=== PATIENT | male | born 1950 | race Caucasian/White ===

== ENCOUNTER → 2016-03-12 | Outpatient (CLI) | payer MEDICARE ==
[~2016-03-12] MED LIST: /CLON1TA; /CLON1TA GT; /METO5TA PO; ACET65TA; AMLO5TAB2 PO; ASPI81TA63; ASPI81TA85 PO; ATAC16TA PO; ATAC32TA; ATEN25TA; ATEN25TA PO; ATOR1TAB21 PO; CAND16TA; CAND16TA2 PO; CARA1TAB2 PO; CATA0.2T; CIPR500T89 PO; CLON0.1T PO; CLON0.2T PO; CLOP75TA2 PO; COLA100C2; FENOGLIDE; FLAG500T PO; GEMF600T PO; HYDR12.56 PO; HYDR25TA6; HYDR50TAB PO; JANU100T PO; LIPI20TA; LIPI20TA PO; LIPO150C3 PO; METO10TA2; MYLASS PO; NORVAS PO; OMEP20CA3 PO; PLAV75TA2; PLAV75TA38 PO; PRIL20CA; VICO5TAB; ZOFR20TA PO; ZOFR4SOL PO
--- NOTE | 2016-03-12 14:15 | REP ---
Abdominal aortic sonography: History: Family history of abdominal aortic aneurysm. Hypercholesterolemia. Tobacco use. Findings: Incidental note is made of an 8 mm gallstone in the gallbladder. Common bile duct is normal measuring 0.3 cm. The abdominal aorta measures 1.9 x 2.1 cm in AP by transverse dimension at the diaphragmatic hiatus. At mid aorta, the corresponding dimensions are 1.9 x 1.9 cm. There is mild atherosclerotic change throughout the abdominal aorta. The distal aorta measures 1.6 x 2.1 cm. No aneurysm is seen. Right and left common iliac arteries are normal in caliber measuring 1.0 and 0.7 cm in AP dimension respectively. Impression: No evidence of abdominal aortic aneurysm. Gallstones seen. Signed by Mauri Franklin MD 03/12/2016 03:33 P
== END ==
LOC: M RAD 10:52
PROVIDERS: ATTEND Nurse Practitioner Family
DX: I10 Essential (primary) hypertension (principal); E78.00 Pure hypercholesterolemia, unspecified; K80.20 Calculus of gallbladder without cholecystitis without obstruction; Z82.49 Family history of ischemic heart disease and other diseases of the circulatory system

== ENCOUNTER → 2016-10-09 | Outpatient (REF) | payer BC ==
[~2016-10-09] MED LIST changes: +CIPR-249 PO; -CIPR500T89 PO; +PLAV1TAB2 PO; -PLAV75TA38 PO
== END ==
LOC: M LAB REF 17:30
PROVIDERS: ATTEND Surgery
DX: L72.11 Pilar cyst (principal)

== ENCOUNTER → 2016-11-14 | Outpatient (CLI) | payer MEDICARE ==
--- NOTE | 2016-11-14 10:50 | REP ---
Thyroid sonography: History: Thyroid nodule. Comparison study: January 30, 2016. This prior study showed a stable 4.6 cm solid nodule in the left lobe. This was biopsied with FNA technique under ultrasound guidance in June 2015. Findings: Thyroid isthmus today measures 0.2 cm in thickness. Right lobe dimensions are 3.2 x 1.5 x 1.4 cm. The left thyroid lobe measures 5.7 x 3.5 x 3.3 cm. A large heterogeneous nodule is again noted somewhat increased in size measuring 5.4 x 3.2 x 3.2 cm in the left lobe. There is a cystic component in the nodule which measures 1.5 cm in greatest diameter. No nodule or cyst is seen in the right lobe. Impression: Previously noted large predominantly solid nodule in the left lobe is again seen. This appears to have increased in size slightly since the prior study Signed by Mauri Franklin MD 11/14/2016 12:11 P
== END ==
LOC: M RAD 09:41
PROVIDERS: ATTEND Surgery
DX: E04.1 Nontoxic single thyroid nodule (principal)

== ENCOUNTER → 2017-03-18 | Outpatient (CLI) | payer MEDICARE | LOC: M RAD 09:54 | DX: Z82.49 Family history of ischemic heart disease and other diseases of the circulatory system (principal) | CPT/HCPCS: 76775 ==

== ENCOUNTER → 2017-09-15 | Outpatient (REF) | payer MEDICARE | LOC: M SFHCLERA 17:31 | DX: J02.9 Acute pharyngitis, unspecified (principal) ==

== ENCOUNTER → 2017-09-17 | Outpatient (CLI) | payer MEDICARE ==
[2017-09-17 18:36] LABS: HEMATOCRIT 45.2 % (42.0-52.0); HEMOGLOBIN 15.2 g/dl (13.5-17.5); MEAN CORPUSCULAR HEMOGLOBIN 29.6 pg (27.0-33.0); MEAN CORPUSCULAR HGB CONC 33.6 g/dl (32.0-36.5); MEAN CORPUSCULAR VOLUME 88.1 fl (80.0-96.0); PLATELET COUNT, AUTOMATED 256 10^3/uL (150-450); RED BLOOD COUNT 5.13 10^6/uL (4.30-6.10); RED CELL DISTRIBUTION WIDTH 12.9 % (11.5-14.5); WHITE BLOOD COUNT 11.8 10^3/uL (4.0-10.0)
[2017-09-17 18:39] LABS: ANION GAP 7 MEQ/L (8-16); BLOOD UREA NITROGEN 27 MG/DL (7-18); CALCIUM LEVEL 9.1 MG/DL (8.8-10.2); CARBON DIOXIDE LEVEL 26 MEQ/L (21-32); CHLORIDE LEVEL 109 MEQ/L (98-107); CREATININE FOR GFR 1.58 MG/DL (0.70-1.30); GLOMERULAR FILTRATION RATE 46.7 (>49); GLUCOSE, FASTING 198 MG/DL (70-100); SODIUM LEVEL 142 MEQ/L (136-145)
== END ==
LOC: M LAB 17:33
DX: Z01.812 Encounter for preprocedural laboratory examination (principal); E11.9 Type 2 diabetes mellitus without complications; I10 Essential (primary) hypertension; H26.9 Unspecified cataract
CPT/HCPCS: 80048

== ENCOUNTER 2018-09-30 15:10 | Emergency (ER) | payer MEDICARE ==
[~2018-09-30] VITALS: Ht 180.3 cm; Wt 102.3 kg
[~2018-09-30 15:10] MED LIST changes: -/CLON1TA; -/CLON1TA GT; -/METO5TA PO; -AMLO5TAB2 PO; +AMLO5TAB6 PO; +CLON-412; +CLON-412 GT; -GEMF600T PO; +GEMF600T5 PO; +METO1TAB88 PO; +OMEP1CAP73 PO; -ZOFR20TA PO; +ZOFR4TAB16 PO
[2018-09-30] MEDS ORDERED: GLIM1TAB4 PO (15:17)
[2018-09-30] MEDS ORDERED: NS 1,000 ML IV ONE ×2 (15:30→18:00)
[2018-09-30] MEDS ORDERED: ONDANSETRON 4MG/2ML VIAL (J2405) IV ONE (15:30)
[2018-09-30 15:52] LABS: BASO % 0.4 % (0.0-1.0); EOS % 0.3 % (0.0-3.0); HEMATOCRIT 48.4 % (42.0-52.0); HEMOGLOBIN 16.3 g/dl (13.5-17.5); LYMPH # 0.9 10^3/uL (1.5-4.5); LYMPH % 13.1 % (24.0-44.0); MEAN CORPUSCULAR HEMOGLOBIN 29.8 pg (27.0-33.0); MEAN CORPUSCULAR HGB CONC 33.7 g/dl (32.0-36.5); MEAN CORPUSCULAR VOLUME 88.5 fl (80.0-96.0); MONO # 0.3 10^3/uL (0.0-0.8); MONO % 3.9 % (0.0-5.0); NEUTROPHILS # 5.5 10^3/uL (1.8-7.7); NEUTROPHILS % 81.9 % (36.0-66.0); PLATELET COUNT, AUTOMATED 226 10^3/uL (150-450); RED BLOOD COUNT 5.47 10^6/uL (4.30-6.10); WHITE BLOOD COUNT 6.7 10^3/uL (4.0-10.0)
[2018-09-30 16:20] LABS: ALBUMIN 4.1 GM/DL (3.2-5.2); ALT/SGPT 60 U/L (12-78); BILIRUBIN,DIRECT 0.2 MG/DL (0.0-0.2); BILIRUBIN,TOTAL 0.4 MG/DL (0.2-1.0); BLOOD UREA NITROGEN 19 MG/DL (7-18); CALCIUM LEVEL 9.4 MG/DL (8.8-10.2); CARBON DIOXIDE LEVEL 28 MEQ/L (21-32); CHLORIDE LEVEL 103 MEQ/L (98-107); CREATININE FOR GFR 1.28 MG/DL (0.70-1.30); GLOMERULAR FILTRATION RATE 59.3 (>49); GLUCOSE, FASTING 166 MG/DL (70-100); LIPASE 120 U/L (73-393); POTASSIUM SERUM 4.2 MEQ/L (3.5-5.1); SODIUM LEVEL 139 MEQ/L (136-145)
[2018-09-30] MEDS ORDERED: ISOVUE-370 76% 100ML VIAL (Q9967) As Ordered ONE (17:09)
[2018-09-30] MEDS ORDERED: METOCLOPRAMIDE INJ 10MG/2ML VIAL (J2765) IV ONE (17:15)
[2018-09-30 17:30] LABS: CK-MB VALUE MASS 3.3 NG/ML (<3.6); CPK CREATINE PHOSPHOKINASE 198 U/L (39-308); MB/CK RELATIVE INDEX 1.67 (< OR =4); TROPONIN I < 0.02 NG/ML (< 0.10)
[2018-09-30] MEDS ORDERED: PROMETHAZINE INJ 25 MG/ML VIAL (J2550) IV ONE (17:30)
--- NOTE | 2018-09-30 18:18 | REPVR ---
EXAM: CT Abdomen and Pelvis With Contrast EXAM DATE/TIME: 09/30/2018 5:11 PM CLINICAL HISTORY: 68 years old, male; Abdominal pain; Generalized; Additional info: Diffuse abdominal pain TECHNIQUE: Imaging protocol: Axial computed tomography images of the abdomen and pelvis with intravenous contrast. Coronal and sagittal reformatted images were created and reviewed. Radiation optimization: All CT scans at this facility use at least one of these dose optimization techniques: automated exposure control; mA and/or kV adjustment per patient size (includes targeted exams where dose is matched to clinical indication); or iterative reconstruction. Contrast material: ISOVUE 370;Contrast volume: 100 ml;Contrast route: IV; COMPARISON: CT ABD PELVIS WITH CONTRAST 08/04/2014 10:32 PM FINDINGS: Lungs: Linear stranding and groundglass at the lung bases, likely due to atelectasis and/or scarring. Bilateral lower lobe calcified granulomata. Mediastinum: Small hiatal hernia. Liver: Mild hepatomegaly. Diffuse hepatic steatosis. Gallbladder and bile ducts: Cholelithiasis. Pancreas: Unremarkable. Spleen: Approximately 3.8 x 3.7 cm hypervascular lesion in the anterior aspect of the spleen, similar to prior and likely a hemangioma. Adrenals: Unremarkable. Kidneys and ureters: Mild nonspecific bilateral perinephric stranding. No radiodense calculi. No hydronephrosis. Stomach and bowel: Scattered colonic diverticula without evidence of diverticulitis. No obstruction. No bowel wall thickening. No pneumatosis. Appendix: Appendix not identified with certainty but no right lower quadrant inflammatory change to suggest acute appendicitis. Intraperitoneal space: Subtle, hazy infiltration of the mesenteric fat. Vasculature: Mild to moderate atherosclerotic disease. No aneurysm. Lymph nodes: Multiple small mesenteric lymph nodes, nonspecific in appearance. No pathologically enlarged lymph nodes. Bladder: Unremarkable. Reproductive: Unremarkable. Bones/joints: No acute osseous abnormality. Osteopenia. Mild degenerative changes. Soft tissues: Unremarkable. IMPRESSION: 1. Hazy infiltration of the mesenteric fat with multiple small mesenteric lymph nodes, suggestive of kan mesentery, a nonspecific finding which can be seen with mesenteric panniculitis. 2. Additional findings, as above. Electronically signed by: Sharath Trimble On 09/30/2018 18:18:11 PM
[2018-09-30 18:40] VITALS: BP 165/80
[2018-09-30] MEDS ORDERED: methylPREDNISolone INJ 125 MG/2 ML VIAL (J2930) IV ONE (18:45)
[2018-09-30] MEDS ORDERED: ZOFR8TAB24 PO (19:14)
[2018-09-30] MEDS ORDERED: PRED20TA PO (19:14)
[2018-09-30] MEDS ORDERED: ONDANSETRON 4 MG TAB (S0181) PO ONE (19:30)
--- NOTE | 2018-09-30 20:06 | ECGEPIP ---
[facility] - ED Test Date: 2018-09-30 Pat Name: PABLITO WHITE Department: Room: - Gender: Male [employer] Professor: portia : 1950 Requested By: ZBIGNIEW Artis PA-C Order Number: [id number] Reading MD: Suleiman Mares Measurements Intervals Clark Rate: 74 P: 6 TX: 191 QRS: 26 QRSD: 106 T: 31 QT: 422 QTc: 469 Interpretive Statements SINUS RHYTHM WITH OCCASIONAL VENTRICULAR PREMATURE COMPLEXES SIMILAR TO 08/05/14 Electronically Signed on 09-30-2018 20:06:29 EDT by Suleiman Mares
[2018-10-11] MEDS ORDERED: ONDA8TAB10 PO (04:47)
== END 2018-09-30 19:29 | disposition home or self-care (01) ==
LOC: M ED 15:10
DX: K65.4 Sclerosing mesenteritis (principal); E11.9 Type 2 diabetes mellitus without complications; I10 Essential (primary) hypertension; E78.5 Hyperlipidemia, unspecified; K27.9 Peptic ulcer, site unspecified, unspecified as acute or chronic, without hemorrhage or perforation; I25.2 Old myocardial infarction; Z79.899 Other long term (current) drug therapy; Z79.82 Long term (current) use of aspirin; Z79.02 Long term (current) use of antithrombotics/antiplatelets; Z88.5 Allergy status to narcotic agent; Z87.891 Personal history of nicotine dependence
CPT/HCPCS: 74177; 80048; 80076; 81001; 82550; 82553; 83605; 83690; 84484; 85025; 93005; 96361; 96374; 96375; 99284; J2405; J2765; J2930; Q9967

== ENCOUNTER 2018-10-10 20:39 | Observation (INO) | payer MEDICARE ==
[~2018-10-10] VITALS: Ht 180.3 cm; Wt 93.0 kg
[~2018-10-10 20:39] MED LIST changes: +GLIM1TAB PO; -OMEP1CAP73 PO; +OMEP20CA4 PO; +PRED20TA PO; +ZOFR8TAB24 PO
[2018-10-10] MEDS: ACETAMINOPHEN 500 MG TAB PO SCH (21:00)
[2018-10-10] MEDS: HumaLOG INSULIN (NovoLOG) PER UNIT SC SCH (21:00)
--- NOTE | 2018-10-10 21:26 | HPEPDOC ---
[facility] Medical History & Physical Date of Admission Oct 10, 2018 Date of Service: Oct 10, 2018 Primary Care Physician: Chasity Maldonado N.P. Attending Physician: PANDA LOYD MD History and Physical Time of service 10:50 PM CHIEF COMPLAINT: Transfer from outside hospital HISTORY OF PRESENT ILLNESS: This is a 68-year-old male who was transferred from [facility] for a higher level of care. He came to [facility] on October 03 with nausea, and intractable vomiting. 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 Shortly there after he presented to [facility] where he was admitted for management of near syncope along with nausea and vomiting. Based on their notes a Carotid duplex, CT of the head, and right upper quadrant ultrasound were done. The CDs have been sent here with him. Currently the patient reports still feeling nauseous and had vomited on the way to the hospital. Since arrival, he has not vomited. He denies having bloody emesis. REVIEW OF SYSTEMS: 12 point review of systems negative except as listed in HPI PAST MEDICAL /SURGICAL HISTORY: 1. Chronic hypertension. 2. Xdb-moryhio-wvhnjtzyh 3 Chronic CAD that is post CABG 4. Gallstones. 5. Fatty liver. 6. GERD/ hiatial hernia / peptic ulcer disease 7. Hypothyroidism status post thyroidectomy for thyroid cancer 8 History of SBO twice 9. Status post appendectomy. SOCIAL HISTORY: Former smoker. Denies alcohol use FAMILY HISTORY: Coronary artery disease ALLERGIES: Please see below. HOME MEDICATIONS: Please see below. PHYSICAL EXAMINATION: VITAL SIGNS: See below GENERAL APPEARANCE: Well-nourished, well-developed, not in apparent distress HEENT: normocephalic, atraumatic, mucous members moist and pink CARDIOVASCULAR: Regular rate and rhythm. No murmurs, rubs or gallops LUNGS: Clear to auscultation bilaterally on room air ABDOMEN: Positive bowel sounds. Abdomen firm but not tender on palpation MUSCULOSKELETAL: Range of motion intact 4 extremities NEUROLOGICAL: Cranial nerves II-12 grossly intact. Speech not dysarthric PSYCHIATRIC: Alert and oriented to person, place and time, able to understand and follow commands LABORATORY DATA: See below. IMAGING: Pending upload of images to [email or web address] system MICROBIOLOGY: Please see below. ASSESSMENT: Mr. Alcazar is a 68-year-old male with a past medical history of coronary artery disease, non-insulin dependent diabetes, chronic hypertension, fatty liver, GERD, hiatial hernia, peptic ulcer disease, and history of small bowel obstruction was transferred from [facility] for higher level of care. . PLAN: 1. N/V Cause to be determined Suspect the patient may have diabetic gastroparesis He also has a history of gallstones, GERD/ hiatial hernia / peptic ulcer disease Plan: admit GMF / nothing by mouth/IV fluids/ daytime team may consider a GI or general surgery consult for EGD pending the results of agastric emptying study and revision of images done at [facility]/ YAZMIN Ann, Lonny 2. Ecx-altsryr-zstmoobam Plan: f/u accuchecks & A1C / hypoglycemia protocol / sliding scale / hold oral anti-glycemics 3. Chronic hypertension. Plan: Continue home meds 4 Chronic CAD/status post CABG Plan: Continue home meds 5.Hypothyroidism status post thyroidectomy for thyroid cancer. Plan: Continue home meds DVT prophylaxis SCDs Disposition pending clinical course Home Medications Scheduled Acetaminophen (Tylenol Extra Strength) 500 Mg Tablet, 1,000 MG PO QHS Amlodipine Besylate (Amlodipine Besylate) 5 Mg Tab, 5 MG PO BID Amoxicillin (Amoxicillin) 500 Mg Capsule, 500 MG PO TID PRESCRIBED 10/06/18 TID X7 DAYS Aspirin (Aspir 81) 81 Mg Tab, 81 MG PO DAILY Atenolol (Atenolol) 25 Mg Tab, 25 MG PO BID Atorvastatin Calcium (Lipitor) 20 Mg Tab, 20 MG PO QPM Candesartan Cilexetil (Candesartan Cilexetil) 32 Mg Tablet, 16 MG PO BID Clonidine HCl (Clonidine HCl) 0.2 Mg Tab, 0.2 MG PO BID Clopidogrel Bisulfate (Plavix) 75 Mg Tab, 75 MG PO DAILY Diphenhydramine HCl (Sleep-Aid) 25 Mg Capsule, 25 MG PO QHS Ergocalciferol (Vitamin D2) (Vitamin D2) 50,000 Unit Capsule, 50,000 UNIT PO QWEEK MONDAYS Fenofibrate,Micronized (Fenofibrate) 200 Mg Capsule, 200 MG PO DAILY Fluticasone Propionate (Flonase Allergy Relief) 9.9 Ml [place].susp, 1 SPRAY NARES DAILY Glimepiride (Glimepiride) 1 Mg Tablet, 1 MG PO DAILY Hydrochlorothiazide (Hydrochlorothiazide) 50 Mg Tab, 50 MG PO DAILY Levothyroxine Sodium (Synthroid) 175 Mcg Tablet, 175 MCG PO QAM Loratadine (Claritin) 10 Mg Tablet, 10 MG PO DAILY Melatonin (Melatonin) 10 Mg Capsule, 10 MG PO QHS Pantoprazole Sodium (Pantoprazole Sodium) 40 Mg Tablet.dr, 40 MG PO DAILY Scheduled PRN Nitroglycerin (Nitroglycerin) 0.4 Mg Tab.subl, 0.4 MG SL Q5MP PRN for CHEST PAIN 1st sign of attack; may repeat every 5 mins; if pain persists after 3 in 15 min, medical attention is recommended Ondansetron HCl (Ondansetron HCl) 8 Mg Tablet, 8 MG PO TID PRN for NAUSEA OR VOMITING Allergies Coded Allergies: morphine (Verified Allergy, Severe, heavy chest, 09/30/18) A-FIB/CHADSVASC A-FIB History Current/History of A-Fib/PAF?: No Current PO Anticoag Therapy: No PANDA LOYD MD Oct 10, 2018 21:26
[2018-10-10 21:30] VITALS: BP 117/93
[2018-10-10] MEDS ORDERED: METOCLOPRAMIDE INJ 10MG/2ML VIAL (J2765) IV PRN (21:30)
[2018-10-10] MEDS ORDERED: DEXTROSE 50% 50 ML SYRINGE IV PRN (21:45)
[2018-10-10] MEDS ORDERED: OLANZapine INTRAMUSCULAR 10 MG VIAL (S0166) IM PRN (21:45)
[2018-10-10] MEDS: NS 1,000 ML IV SCH (22:08)
[2018-10-10 22:09] LABS: HEMATOCRIT 50.5 % (42.0-52.0); HEMOGLOBIN 16.7 g/dl (13.5-17.5); MEAN CORPUSCULAR HEMOGLOBIN 29.5 pg (27.0-33.0); MEAN CORPUSCULAR HGB CONC 33.1 g/dl (32.0-36.5); MEAN CORPUSCULAR VOLUME 89.2 fl (80.0-96.0); PLATELET COUNT, AUTOMATED 227 10^3/uL (150-450); RED BLOOD COUNT 5.66 10^6/uL (4.30-6.10); WHITE BLOOD COUNT 9.6 10^3/uL (4.0-10.0)
[2018-10-10 22:24] LABS: INR 1.01
[2018-10-10] MEDS: ONDANSETRON 4MG/2ML VIAL (J2405) IV SCH (22:27)
[2018-10-10] MEDS: PANTOPRAZOLE 40MG INJ (PROTONIX) (C9113) IV SCH (22:27)
[2018-10-10 22:33] LABS: ALBUMIN 3.6 GM/DL (3.2-5.2); BILIRUBIN,TOTAL 0.4 MG/DL (0.2-1.0); CREATININE FOR GFR 1.32 MG/DL (0.70-1.30); GLOMERULAR FILTRATION RATE 57.3 (>49); POTASSIUM SERUM 3.9 MEQ/L (3.5-5.1); TOTAL PROTEIN 6.8 GM/DL (6.4-8.2)
[2018-10-11] MEDS: ONDANSETRON 4MG/2ML VIAL (J2405) IV SCH ×6 (02:11→21:41)
[2018-10-11] MEDS ORDERED: CVS10CAP7 PO (04:47)
[2018-10-11] MEDS ORDERED: FENO200C PO (04:47)
[2018-10-11] MEDS ORDERED: SYNT175T2 PO (04:47)
[2018-10-11] MEDS ORDERED: CAND32TA9 PO (04:47)
[2018-10-11] MEDS ORDERED: FLON1SPR NARES (04:47)
[2018-10-11] MEDS ORDERED: RA S25CA PO (04:47)
[2018-10-11] MEDS ORDERED: AMOX500C PO (04:47)
[2018-10-11] MEDS ORDERED: CLAR10TA7 PO (04:47)
[2018-10-11] MEDS ORDERED: VITA500045 PO (04:47)
[2018-10-11] MEDS ORDERED: PANT-23 PO (04:47)
[2018-10-11] MEDS ORDERED: ONDA8TAB7 PO (04:47)
[2018-10-11] MEDS ORDERED: NITR0.4S14 SL (04:47)
[2018-10-11] MEDS ORDERED: ACET-897 PO (04:47)
[2018-10-11 06:00] VITALS: BP 168/88
[2018-10-11 07:03] LABS: HEMATOCRIT 46.6 % (42.0-52.0); HEMOGLOBIN 15.7 g/dl (13.5-17.5); MEAN CORPUSCULAR HEMOGLOBIN 28.9 pg (27.0-33.0); MEAN CORPUSCULAR HGB CONC 33.7 g/dl (32.0-36.5); MEAN CORPUSCULAR VOLUME 85.8 fl (80.0-96.0); PLATELET COUNT, AUTOMATED 225 10^3/uL (150-450); RED BLOOD COUNT 5.43 10^6/uL (4.30-6.10); WHITE BLOOD COUNT 8.3 10^3/uL (4.0-10.0)
[2018-10-11 07:27] LABS: BLOOD UREA NITROGEN 17 MG/DL (7-18); CARBON DIOXIDE LEVEL 27 MEQ/L (21-32); CHLORIDE LEVEL 108 MEQ/L (98-107); CREATININE FOR GFR 1.24 MG/DL (0.70-1.30); GLOMERULAR FILTRATION RATE > 60.0 (>49); GLUCOSE, FASTING 110 MG/DL (70-100); MAGNESIUM LEVEL 2.1 MG/DL (1.8-2.4); POTASSIUM SERUM 3.4 MEQ/L (3.5-5.1); SODIUM LEVEL 141 MEQ/L (136-145)
[2018-10-11] MEDS: HumaLOG INSULIN (NovoLOG) PER UNIT SC SCH ×4 (07:30→21:00)
[2018-10-11] MEDS ORDERED: METOCLOPRAMIDE INJ 10MG/2ML VIAL (J2765) IV PRN (08:30)
[2018-10-11] MEDS ORDERED: POTASSIUM CHLORIDE 10 MEQ SR TABLET PO ONE (09:00)
[2018-10-11] MEDS: GLIMEPIRIDE 1 MG TABLET PO SCH (09:00)
[2018-10-11] MEDS: CANDESARTAN 16 MG TABLET PO SCH ×2 (10:09→21:33)
[2018-10-11] MEDS: ASPIRIN 81 MG ENTERIC TAB PO SCH (10:09)
[2018-10-11] MEDS: FLUTICASONE PROP 0.05% NASAL SPRAY 16 GM (FLONASE) NARES SCH (10:09)
[2018-10-11] MEDS: hydroCHLOROthiazide 25 MG TAB PO SCH (10:10)
[2018-10-11] MEDS: CLOPIDOGREL 75 MG TAB PO SCH (10:11)
[2018-10-11] MEDS: ATENOLOL 25 MG TAB PO SCH ×2 (10:11→21:34)
[2018-10-11] MEDS: amLODIPine 5 MG TAB PO SCH ×2 (10:11→21:33)
[2018-10-11] MEDS: cloNIDine 0.2 MG TAB PO SCH ×2 (10:11→21:37)
--- NOTE | 2018-10-11 11:57 | IPNPDOC ---
Subjective Date Seen The patient was seen on 10/11/18. Subjective Chief Complaint/HPI Patient's symptoms are improving but is still has some nausea. No abdominal pain General: Denies: ROS Unobtainable, Chills, Night Sweats, Fatigue, Malaise, Normal Appetite, Other Symptoms Constitutional: Denies: Chills, Fever, Malaise, Night Sweats, Weakness, Fatigue, Weight Loss, Lethargy, Other Eyes: Denies: Pain, Vision change, Conjunctivae inflammation, Eyelid inflammation, Redness, Other ENT: Denies: Head Aches, Ear Pain, Dysphagia, Sinus Congestion, Post Nasal Drip, Sore Throat, Epistaxis, Other Symptoms Skin: Denies: Rash, Lesions, Jaundice, Bruising, Itching, Dry, Breakdown, Nail Changes, Other Pulmonary: Denies: Dyspnea, Cough, Pleuritic Chest Pain, Other Symptoms Gastrointestinal: Reports: Nausea; Denies: Vomiting, Abdominal Pain, Diarrhea, Constipation, Melena, Hemato chezia, Other Symptoms Endocrine: Denies: Polydipsia, Polyphagia, Polyuria, Heat Intolerance, Cold Intolerance, Other Endocrine Sx Musculoskeletal: Denies: Neck Pain, Back Pain, Shoulder Pain, Arm Pain, Hand Pain, Leg Pain, Foot Pain, Joint Pain, Muscle Pain, Spasms, Other Symptoms Psych: Denies: Mood Normal, Anxiety, Depression, Memory Issues, Thoughts of Self Harm, Anger, Thoughts of Harming Other, Other Psych Objective Physical Examination General Exam: Positive: Alert Eye Exam: Positive: PERRLA, Conjunctiva & lids normal ENT Exam: Positive: Atraumatic, Mucous membr. moist/pink Neck Exam: Positive: Supple Chest Exam: Positive: Clear to auscultation, Normal air movement Heart Exam: Positive: Rate Normal, Normal S1, Normal S2 Abdomen Exam: Positive: Normal bowel sounds, Soft Extremity Exam: Positive: Normal pulses Skin Exam: Positive: Nl turgor and temperature Neuro Exam: Positive: Normal Gait, Normal Speech, Strength at 5/5 X4 ext, Sensation Intact Assessment /Plan Problems (1) Intractable vomiting with nausea Status: Acute Problem Text: This is a 68-year-old male who was transferred from [facility] for a higher level of care. He to [facility] on October 03 with nausea, and intractable vomiting. 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 Nevertheless, he continued to vomit at home. Really there after he presented to [facility] where he was admitted for management of near syncope along with nausea and vomiting. Based on their notes . Carotid duplex, CT of the head, and right upper quadrant ultrasound were done. The CDs have been sent with him. Currently the patient reports still feeling nauseous and vomited on the way to the hospital. Since arrival, he has not vomited. He denies having episodes of bloody emesis Patient seems to be responding to conservative management and has decreased vomiting but has still has some nausea , Most likely suggestive diabetic gastroparesis nature Will start Reglan 5 mg IV every 6 hours Repeat all labs in a.m. Clear liquid diet Close monitoring (2) Hypokalemia Status: Acute Problem Text: Corrected The level in a.m. Plan/VTE VTE Prophylaxis Ordered?: Yes VS, I&O, 24H, Fishbone Vital Signs/I&O Vital Signs Date Time Temp Pulse Resp B/P (MAP) Pulse Ox O2 Delivery O2 Flow Rate FiO2 10/11/18 10:11 168/88 10/11/18 10:11 75 10/11/18 06:00 98.1 18 97 I&O- Last 24 Hours up to 6 AM 10/11/18 06:00 Intake Total 360 ml Output Total 550 ml Balance -190 ml Laboratory Data 24H LABS Laboratory Tests 2 10/10/18 21:58: Bedside Glucose (Misc Panel) 111 10/10/18 22:02: Nucleated Red Blood Cells % (auto) 0.0, Prothrombin Time 13.0, Prothromb Time International Ratio 1.01, Anion Gap 5L, Glomerular Filtration Rate 57.3, Blood Urea Nitrogen 16, Creatinine 1.32H, Sodium Level 140, Potassium Level 3.9, Chloride Level 105, Carbon Dioxide Level 30, Calcium Level 9.0, Aspartate Amino Transf (AST/SGOT) 43H, Alanine Aminotransferase (ALT/SGPT) 70, Alkaline Phosphatase 55, Total Bilirubin 0.4, Total Protein 6.8, Albumin 3.6, Albumin/Globulin Ratio 1.13 10/11/18 06:49: Nucleated Red Blood Cells % (auto) 0.0, Anion Gap 6L, Glomerular Filtration Rate > 60.0, Blood Urea Nitrogen 17, Creatinine 1.24, Sodium Level 141, Potassium Level 3.4L, Chloride Level 108H, Carbon Dioxide Level 27, Calcium Level 9.0, Estimated Mean Plasma Glucose 154H, Hemoglobin A1c 7.0, Magnesium Level 2.1 10/11/18 11:35: Bedside Glucose (Misc Panel) 117H CBC/BMP Laboratory Tests 10/10/18 22:02 Red Blood Count 5.66, Mean Corpuscular Volume 89.2, Mean Corpuscular Hemoglobin 29.5, Mean Corpuscular Hemoglobin Concent 33.1, Red Cell Distribution Width 13.2, Calcium Level 9.0, Aspartate Amino Transf (AST/SGOT) 43 H, Alanine Aminotransferase (ALT/SGPT) 70, Alkaline Phosphatase 55, Total Bilirubin 0.4, Total Protein 6.8, Albumin 3.6 10/11/18 06:49 Red Blood Count 5.43, Mean Corpuscular Volume 85.8, Mean Corpuscular Hemoglobin 28.9, Mean Corpuscular Hemoglobin Concent 33.7, Red Cell Distribution Width 13.2, Calcium Level 9.0 MAGDALENO PÉREZ MD Oct 11, 2018 11:57
[2018-10-11 14:00] VITALS: BP 149/72
[2018-10-11] MEDS: NS 1,000 ML IV SCH (14:40)
[2018-10-11] MEDS: ATORVASTATIN 20 MG TAB PO SCH (18:22)
[2018-10-11] MEDS: ACETAMINOPHEN 500 MG TAB PO SCH ×2 (21:00→21:41)
[2018-10-11] MEDS: PANTOPRAZOLE 40MG INJ (PROTONIX) (C9113) IV SCH (21:40)
[2018-10-11 22:00] VITALS: BP 146/76
[2018-10-12] MEDS: ONDANSETRON 4MG/2ML VIAL (J2405) IV SCH ×6 (02:34→20:52)
[2018-10-12 06:00] VITALS: BP 142/71
[2018-10-12 06:25] LABS: HEMATOCRIT 48.5 % (42.0-52.0); HEMOGLOBIN 16.5 g/dl (13.5-17.5); MEAN CORPUSCULAR HEMOGLOBIN 29.9 pg (27.0-33.0); PLATELET COUNT, AUTOMATED 228 10^3/uL (150-450); RED BLOOD COUNT 5.51 10^6/uL (4.30-6.10); WHITE BLOOD COUNT 7.3 10^3/uL (4.0-10.0)
[2018-10-12] MEDS: NS 1,000 ML IV SCH (06:39)
[2018-10-12] MEDS: LEVOTHYROXINE 75MCG TABLET (0.075MG) PO SCH (06:41)
[2018-10-12] MEDS: LEVOTHYROXINE 100MCG TABLET (0.1MG) PO SCH (06:41)
[2018-10-12 06:54] LABS: ALBUMIN 3.3 GM/DL (3.2-5.2); BILIRUBIN,TOTAL 0.6 MG/DL (0.2-1.0); CALCIUM LEVEL 8.9 MG/DL (8.8-10.2); CREATININE FOR GFR 1.29 MG/DL (0.70-1.30); GLOMERULAR FILTRATION RATE 58.8 (>49); POTASSIUM SERUM 3.9 MEQ/L (3.5-5.1); TOTAL PROTEIN 6.1 GM/DL (6.4-8.2)
[2018-10-12] MEDS: HumaLOG INSULIN (NovoLOG) PER UNIT SC SCH ×4 (07:30→21:00)
[2018-10-12 10:00] VITALS: BP 121/66
[2018-10-12] MEDS ORDERED: ACETAMINOPHEN TAB 650MG DOSE (2X325MG) PO PRN (10:00)
[2018-10-12 10:30] VITALS: BP 176/86
[2018-10-12] MEDS: ASPIRIN 81 MG ENTERIC TAB PO SCH (10:35)
[2018-10-12] MEDS: CLOPIDOGREL 75 MG TAB PO SCH (10:35)
[2018-10-12] MEDS: GLIMEPIRIDE 1 MG TABLET PO SCH (10:35)
[2018-10-12] MEDS: METOCLOPRAMIDE 10 MG TAB PO SCH ×3 (10:35→20:48)
[2018-10-12] MEDS: CANDESARTAN 16 MG TABLET PO SCH ×2 (10:35→20:48)
[2018-10-12] MEDS: hydroCHLOROthiazide 25 MG TAB PO SCH (10:35)
[2018-10-12] MEDS: amLODIPine 5 MG TAB PO SCH ×2 (10:36→20:47)
[2018-10-12] MEDS: ATENOLOL 25 MG TAB PO SCH ×2 (10:37→20:48)
[2018-10-12] MEDS: FLUTICASONE PROP 0.05% NASAL SPRAY 16 GM (FLONASE) NARES SCH (10:37)
[2018-10-12] MEDS: cloNIDine 0.2 MG TAB PO SCH ×2 (10:37→20:48)
--- NOTE | 2018-10-12 11:12 | IPNPDOC ---
Subjective Date Seen The patient was seen on 10/12/18. Subjective Chief Complaint/HPI Patient is no more nausea, vomiting, but he is still scared to eat offers no new complaints at the present time General: Denies: ROS Unobtainable, Chills, Night Sweats, Fatigue, Malaise, Normal Appetite, Other Symptoms Constitutional: Denies: Chills, Fever, Malaise, Night Sweats, Weakness, Fatigue, Weight Loss, Lethargy, Other Eyes: Denies: Pain, Vision change, Conjunctivae inflammation, Eyelid inflammation, Redness, Other ENT: Denies: Head Aches, Ear Pain, Dysphagia, Sinus Congestion, Post Nasal Drip, Sore Throat, Epistaxis, Other Symptoms Skin: Denies: Rash, Lesions, Jaundice, Bruising, Itching, Dry, Breakdown, Nail Changes, Other Cardiovascular: Denies: Chest Pain, Palpitations, Orthopnea, Paroxysmal Noc. Dyspnea, Edema, Lt Headedness, Other Symptoms Gastrointestinal: Denies: Nausea, Vomiting, Abdominal Pain, Diarrhea, Constipation, Melena, Hematochezia, Other Symptoms Endocrine: Denies: Polydipsia, Polyphagia, Polyuria, Heat Intolerance, Cold Intolerance, Other Endocrine Sx Musculoskeletal: Denies: Neck Pain, Back Pain, Shoulder Pain, Arm Pain, Hand Pain, Leg Pain, Foot Pain, Joint Pain, Muscle Pain, Spasms, Other Symptoms Neurological: Denies: Weakness, Numbness, Incoordination, Change in speech, Confusion, Seizures, Other Symptoms Objective Physical Examination General Exam: Positive: Alert Eye Exam: Positive: PERRLA, Conjunctiva & lids normal ENT Exam: Positive: Atraumatic, Mucous membr. moist/pink Neck Exam: Positive: Supple Chest Exam: Positive: Clear to auscultation, Normal air movement Heart Exam: Positive: Rate Normal, Normal S1, Normal S2 Abdomen Exam: Positive: Normal bowel sounds, Soft Extremity Exam: Positive: Normal pulses Skin Exam: Positive: Nl turgor and temperature Neuro Exam: Positive: Normal Gait, Normal Speech, Strength at 5/5 X4 ext, Sensation Intact Assessment /Plan Problems (1) Intractable vomiting with nausea Status: Acute Problem Text: This is a 68-year-old male who was transferred from [facility] for a higher level of care. He to [facility] on October 03 with nausea, and intractable vomiting. 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 Nevertheless, he continued to vomit at home. Really there after he presented to [facility] where he was admitted for management of near syncope along with nausea and vomiting. Based on their notes . Carotid duplex, CT of the head, and right upper quadrant ultrasound were done. The CDs have been sent with him. Currently the patient reports still feeling nauseous and vomited on the way to the hospital. Since arrival, he has not vomited. He denies having episodes of bloody emesis Patient seems to be responding very well to with the Reglan and conservative management Will start him on regular diet today Even though will continue IV fluids. In the meantime Will change Reglan to by mouth every before meals and at bedtime If patient has no more nausea, vomiting, and he can tolerate by mouth feeding, then he can be discharged home (2) Hypokalemia Status: Acute Problem Text: Corrected Labwork within normal limits (3) Diabetic gastroparesis associated with type 2 diabetes mellitus Status: Chronic Problem Text: As above (4) Diabetes mellitus Status: Chronic Response to Treatment: Stable Problem Text: Continue home meds Plan/VTE VTE Prophylaxis Ordered?: Yes VS, I&O, 24H, Fishbone Vital Signs/I&O Vital Signs Date Time Temp Pulse Resp B/P (MAP) Pulse Ox O2 Delivery O2 Flow Rate FiO2 10/12/18 10:36 56 176/86 10/12/18 10:00 97.5 18 98 I&O- Last 24 Hours up to 6 AM 10/12/18 06:00 Intake Total 780 ml Output Total 1750 ml Balance -970 ml Laboratory Data 24H LABS Laboratory Tests 2 10/11/18 11:35: Bedside Glucose (Misc Panel) 117H 10/11/18 17:11: Bedside Glucose (Misc Panel) 89 10/11/18 21:12: Bedside Glucose (Misc Panel) 93 10/12/18 06:02: Nucleated Red Blood Cells % (auto) 0.0, Anion Gap 7L, Glomerular Filtration Rate 58.8, Blood Urea Nitrogen 16, Creatinine 1.29, Sodium Level 140, Potassium Level 3.9, Chloride Level 106, Carbon Dioxide Level 27, Calcium Level 8.9, Aspartate Amino Transf (AST/SGOT) 42H, Alanine Aminotransferase (ALT/SGPT) 68, Alkaline Phosphatase 56, Total Bilirubin 0.6, Total Protein 6.1L, Albumin 3.3, Albumin/Globulin Ratio 1.18 CBC/BMP Laboratory Tests 10/12/18 06:02 Red Blood Count 5.51, Mean Corpuscular Volume 88.0, Mean Corpuscular Hemoglobin 29.9, Mean Corpuscular Hemoglobin Concent 34.0, Red Cell Distribution Width 13.0, Calcium Level 8.9, Aspartate Amino Transf (AST/SGOT) 42 H, Alanine Aminotransferase (ALT/SGPT) 68, Alkaline Phosphatase 56, Total Bilirubin 0.6, Total Protein 6.1 L, Albumin 3.3 MAGDALENO PÉREZ MD Oct 12, 2018 11:12
[2018-10-12 14:00] VITALS: BP 118/69
[2018-10-12] MEDS: ATORVASTATIN 20 MG TAB PO SCH (18:09)
[2018-10-12] MEDS: ACETAMINOPHEN 500 MG TAB PO SCH (20:47)
[2018-10-12] MEDS: PANTOPRAZOLE 40MG INJ (PROTONIX) (C9113) IV SCH (20:52)
[2018-10-12 22:00] VITALS: BP 150/71
[2018-10-13] MEDS: ONDANSETRON 4MG/2ML VIAL (J2405) IV SCH ×5 (01:00→17:34)
[2018-10-13] MEDS: LEVOTHYROXINE 75MCG TABLET (0.075MG) PO SCH (05:51)
[2018-10-13] MEDS: LEVOTHYROXINE 100MCG TABLET (0.1MG) PO SCH (05:51)
[2018-10-13 06:00] VITALS: BP 147/83
[2018-10-13] MEDS: HumaLOG INSULIN (NovoLOG) PER UNIT SC SCH ×3 (07:30→17:30)
[2018-10-13] MEDS: METOCLOPRAMIDE 10 MG TAB PO SCH ×3 (07:30→17:33)
[2018-10-13] MEDS: CANDESARTAN 16 MG TABLET PO SCH (08:11)
[2018-10-13] MEDS: hydroCHLOROthiazide 25 MG TAB PO SCH (08:11)
[2018-10-13] MEDS: ASPIRIN 81 MG ENTERIC TAB PO SCH (08:11)
[2018-10-13] MEDS: CLOPIDOGREL 75 MG TAB PO SCH (08:11)
[2018-10-13 08:12] VITALS: BP 127/96
[2018-10-13] MEDS: GLIMEPIRIDE 1 MG TABLET PO SCH (08:12)
[2018-10-13] MEDS: ATENOLOL 25 MG TAB PO SCH ×2 (08:12→08:16)
[2018-10-13] MEDS: amLODIPine 5 MG TAB PO SCH (08:12)
[2018-10-13] MEDS: cloNIDine 0.2 MG TAB PO SCH (08:12)
[2018-10-13] MEDS: FLUTICASONE PROP 0.05% NASAL SPRAY 16 GM (FLONASE) NARES SCH (08:13)
--- NOTE | 2018-10-13 13:26 | DS.PDOC ---
Discharge Summary General Date of Admission Oct 10, 2018 at 20:39 Date of Discharge 10/13/18 Discharge Summary PROCEDURES PERFORMED DURING STAY: None. ADMITTING DIAGNOSES: 1. Intractable nausea, vomiting, diabetes mellitus. DISCHARGE DIAGNOSES: 1. Intractable nausea, vomiting, diabetic gastroparesis, diabetes mellitus. COMPLICATIONS/CHIEF COMPLAINT: Intractable Vomiting. HISTORY OF PRESENT ILLNESS: This is a 68-year-old male who was transferred from [facility] for a higher level of care. He came to [facility] on October 03 with nausea, and intractable vomiting. 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 Shortly there after he presented to [facility] where he was admitted for management of near syncope along with nausea and vomiting. Based on their notes a Carotid duplex, CT of the head, and right upper quadrant ultrasound were done. The CDs have been sent here with him. Currently the patient reports still feeling nauseous and had vomited on the way to the hospital. Since arrival, he has not vomited. He denies having bloody emesis. HOSPITAL COURSE: Patient was admitted with the diagnosis of intractable nausea, vomiting which was most likely secondary to diabetic gastroparesis. Initially patient was kept nothing by mouth, was started on IV fluids and symptomatic treatment with Zofran was done. initially was unable to tolerate any oral feeding, but slowly and progressively improved. Once the Reglan was started on him as every 6 hours. Once patient started tolerating oral feeding. IV fluids were discontinued and patient will be discharged home today as he is asymptomatic but he is still awaiting gastric function test today. Once the test is completed. He'll be sent home and he can follow with his primary care physician as an outpatient. Patient will be discharged home on Reglan 10 mg by mouth every before meals and at bedtime. DISCHARGE MEDICATIONS: Please see below. ALLERGIES: Please see below. PHYSICAL EXAMINATION ON DISCHARGE: VITAL SIGNS: Please see below. GENERAL: Normal HEENT: Within normal limits. PERRLA NECK: Supple CARDIOVASCULAR EXAMINATION: S1, S2, regular RESPIRATORY EXAMINATION: Clear to A&P ABDOMINAL EXAMINATION: [Benign. EXTREMITIES: No clubbing, cyanosis SKIN: Within normal limits NEUROLOGICAL EXAMINATION: No focal motor sensory deficit PSYCHIATRIC EXAMINATION: Normal LABORATORY DATA: Please see below. IMAGING: Gastric emptying study done, report pending PROGNOSIS: Good ACTIVITY: As tolerated. DIET: Carbohydrate consistent DISCHARGE PLAN: Follow-up with PCP in one week DISPOSITION: . Home DISCHARGE INSTRUCTIONS: 1. As per discharge instructions. ITEMS TO FOLLOWUP ON ON OUTPATIENT: 1. Follow with PCP in one week. DISCHARGE CONDITION: Stable. TIME SPENT ON DISCHARGE: 35 minutes. Vital Signs/I&Os Vital Signs Date Time Temp Pulse Resp B/P (MAP) Pulse Ox O2 Delivery O2 Flow Rate FiO2 10/13/18 08:12 66 127/96 10/13/18 06:00 98.0 17 98 I&O- Last 24 Hours up to 6 AM 10/13/18 06:00 Intake Total 1810 ml Output Total 2200 ml Balance -390 ml Laboratory Data Labs 24H Laboratory Tests 2 10/12/18 17:20: Bedside Glucose (Misc Panel) 139H 10/12/18 20:31: Bedside Glucose (Misc Panel) 106 10/13/18 05:45: Bedside Glucose (Misc Panel) 132H FSBS Laboratory Tests Test 10/12/18 17:20 10/12/18 20:31 10/13/18 05:45 Range/Units Bedside Glucose (Misc Panel) 139 106 132 80-115 MG/DL Discharge Medications Scheduled Acetaminophen (Tylenol Extra Strength) 500 Mg Tablet, 1,000 MG PO QHS, (Reported) Amlodipine Besylate (Amlodipine Besylate) 5 Mg Tab, 5 MG PO BID, (Reported) Amoxicillin (Amoxicillin) 500 Mg Capsule, 500 MG PO TID, (Reported) PRESCRIBED 10/06/18 TID X7 DAYS Aspirin (Aspir 81) 81 Mg Tab, 81 MG PO DAILY, (Reported) Atenolol (Atenolol) 25 Mg Tab, 25 MG PO BID, (Reported) Atorvastatin Calcium (Lipitor) 20 Mg Tab, 20 MG PO QPM, (Reported) Candesartan Cilexetil (Candesartan Cilexetil) 32 Mg Tablet, 16 MG PO BID, (Reported) Clonidine HCl (Clonidine HCl) 0.2 Mg Tab, 0.2 MG PO BID, (Reported) Clopidogrel Bisulfate (Plavix) 75 Mg Tab, 75 MG PO DAILY, (Reported) Diphenhydramine HCl (Sleep-Aid) 25 Mg Capsule, 25 MG PO QHS, (Reported) Ergocalciferol (Vitamin D2) (Vitamin D2) 50,000 Unit Capsule, 50,000 UNIT PO QWEEK, (Reported) MONDAYS Fenofibrate,Micronized (Fenofibrate) 200 Mg Capsule, 200 MG PO DAILY, (Reported) Fluticasone Propionate (Flonase Allergy Relief) 9.9 Ml Finley.susp, 1 SPRAY NARES DAILY, (Reported) Glimepiride (Glimepiride) 1 Mg Tablet, 1 MG PO DAILY, (Reported) Hydrochlorothiazide (Hydrochlorothiazide) 50 Mg Tab, 50 MG PO DAILY, (Reported) Levothyroxine Sodium (Synthroid) 175 Mcg Tablet, 175 MCG PO QAM, (Reported) Loratadine (Claritin) 10 Mg Tablet, 10 MG PO DAILY, (Reported) Melatonin (Melatonin) 10 Mg Capsule, 10 MG PO QHS, (Reported) Pantoprazole Sodium (Pantoprazole Sodium) 40 Mg Tablet.dr, 40 MG PO DAILY, (Reported) Scheduled PRN Nitroglycerin (Nitroglycerin) 0.4 Mg Tab.subl, 0.4 MG SL Q5MP PRN for CHEST PAIN, (Reported) 1st sign of attack; may repeat every 5 mins; if pain persists after 3 in 15 min, medical attention is recommended Ondansetron HCl (Ondansetron HCl) 8 Mg Tablet, 8 MG PO TID PRN for NAUSEA OR VOMITING, (Reported) Allergies Coded Allergies: morphine (Verified Allergy, Severe, heavy chest, 09/30/18) MAGDALENO PÉREZ MD Oct 13, 2018 13:26
--- NOTE | 2018-10-13 15:42 | REP ---
Gastric emptying nuclear scintigraphy: History: Nausea and vomiting. Diabetes. Technique: 1.1 mCi of technetium-99m sulfur colloid was ingested in two scrambled eggs and 6 ounces of water and sequential anterior and posterior images are acquired for an 89-minute imaging observation period. Regions of interest are drawn around the stomach to plot gastric emptying. Scintigraphic findings: Expected T1/2 is 90 minutes. 48 % emptying is observed in this patient during the 89-minute imaging observation period, for a calculated T1/2 in this patient of 86 minutes. Impression: Normal gastric emptying. Electronically Signed by Mauri Franklin MD 10/13/2018 03:30 P
[2018-10-13] MEDS ORDERED: METO10TA2 PO (16:04)
[2018-10-13] MEDS: ATORVASTATIN 20 MG TAB PO SCH (17:33)
== END 2018-10-13 18:34 | disposition home or self-care (01) ==
LOC: INTOOBSV 20:39 → M MSPAV 20:39
PROVIDERS: ADMIT Internal Medicine Nephrology; ATTEND Internal Medicine
DX: R11.2 Nausea with vomiting, unspecified (principal); K31.84 Gastroparesis; E11.69 Type 2 diabetes mellitus with other specified complication; E87.6 Hypokalemia; Z79.899 Other long term (current) drug therapy; Z79.82 Long term (current) use of aspirin; Z79.02 Long term (current) use of antithrombotics/antiplatelets; Z88.5 Allergy status to narcotic agent
CPT/HCPCS: 36415; 78264; 80048; 80053; 83036; 83735; 85027; 85610; 96361; 96374; 96376; A9541; C9113; G0378; J2405

== ENCOUNTER → 2020-04-25 | Outpatient (CLI) | payer MEDICARE ==
[~2020-04-25] MED LIST changes: +ACET-897 PO; +AMLO1TAB24 PO; -AMLO5TAB6 PO; +AMOX500C PO; +ASPI81TA86 PO; +CAND32TA9 PO; +CLAR10TA7 PO; +CVS10CAP7 PO; +FENO200C PO; +FLON1SPR NARES; -GLIM1TAB PO; +GLIM1TAB4 PO; +METO10TA2 PO; +NITR0.4S14 SL; +OMEP1CAP73 PO; -OMEP20CA4 PO; +ONDA8TAB10 PO; +PANT-23 PO; +RA S25CA PO; +SYNT175T2 PO; +VITA500045 PO
[2020-04-25 17:50] LABS: BASO # 0.1 10^3/uL (0.0-0.2); EOS # 0.1 10^3/uL (0.0-0.5); EOS % 1.7 % (0.0-3.0); HEMATOCRIT 50.5 % (42.0-52.0); HEMOGLOBIN 16.5 g/dl (13.5-17.5); LYMPH # 2.1 10^3/uL (1.5-5.0); LYMPH % 29.2 % (24.0-44.0); MEAN CORPUSCULAR HEMOGLOBIN 28.7 pg (27.0-33.0); MEAN CORPUSCULAR HGB CONC 32.7 g/dl (32.0-36.5); MEAN CORPUSCULAR VOLUME 87.8 fl (80.0-96.0); MONO # 0.6 10^3/uL (0.0-0.8); MONO % 8.4 % (2.0-8.0); NEUTROPHILS # 4.2 10^3/uL (1.5-8.5); NEUTROPHILS % 59.1 % (36.0-66.0); PLATELET COUNT, AUTOMATED 241 10^3/uL (150-450); RED BLOOD COUNT 5.75 10^6/uL (4.30-6.10); WHITE BLOOD COUNT 7.1 10^3/uL (4.0-10.0)
== END ==
LOC: M LAB 16:23
PROVIDERS: ATTEND Internal Medicine Cardiovascular Disease
DX: R07.9 Chest pain, unspecified (principal)

== ENCOUNTER → 2020-07-16 | Outpatient (CLI) | payer MEDICARE | LOC: M LABSMTC 08:54 | PROVIDERS: ATTEND Family Medicine | DX: Z11.52 Encounter for screening for COVID-19 (principal) ==

== ENCOUNTER → 2020-07-16 | Outpatient (CLI) | payer MEDICARE ==
[2020-07-16 10:38] LABS: BASO # 0.1 10^3/uL (0.0-0.2); BASO % 0.8 % (0.0-1.0); EOS # 0.1 10^3/uL (0.0-0.5); HEMATOCRIT 49.3 % (42.0-52.0); HEMOGLOBIN 16.6 g/dl (13.5-17.5); LYMPH # 1.7 10^3/uL (1.5-5.0); LYMPH % 27.9 % (24.0-44.0); MEAN CORPUSCULAR HGB CONC 33.7 g/dl (32.0-36.5); MEAN CORPUSCULAR VOLUME 89.2 fl (80.0-96.0); MONO # 0.5 10^3/uL (0.0-0.8); MONO % 8.4 % (2.0-8.0); NEUTROPHILS # 3.7 10^3/uL (1.5-8.5); NEUTROPHILS % 60.4 % (36.0-66.0); PLATELET COUNT, AUTOMATED 220 10^3/uL (150-450); RED BLOOD COUNT 5.53 10^6/uL (4.30-6.10); WHITE BLOOD COUNT 6.1 10^3/uL (4.0-10.0)
[2020-07-16 10:58] LABS: BLOOD UREA NITROGEN 18 MG/DL (7-18); CALCIUM LEVEL 8.8 MG/DL (8.8-10.2); CARBON DIOXIDE LEVEL 26 MEQ/L (21-32); CHLORIDE LEVEL 108 MEQ/L (98-107); CREATININE FOR GFR 1.14 MG/DL (0.70-1.30); GLOMERULAR FILTRATION RATE > 60.0 (>42); GLUCOSE, FASTING 127 MG/DL (70-100); POTASSIUM SERUM 4.3 MEQ/L (3.5-5.1); SODIUM LEVEL 139 MEQ/L (136-145)
[2020-07-18 12:35] LABS: FREE T4 1.17 NG/DL (0.76-1.46)
[2020-07-18 13:56] LABS: HEMOGLOBIN A1c 6.2 %
== END ==
LOC: M LAB 09:33
PROVIDERS: ATTEND Internal Medicine Cardiovascular Disease
DX: R07.9 Chest pain, unspecified (principal); E07.9 Disorder of thyroid, unspecified

== ENCOUNTER → 2020-10-02 | Outpatient (CLI) | payer MEDICARE ==
[~2020-10-02] MED LIST changes: +CAND32TA18 PO; -CAND32TA9 PO; -FENO200C PO; +FENO200C19 PO; +ONDA-84 PO; -ONDA8TAB10 PO
== END ==
LOC: M RAD 13:34
PROVIDERS: ATTEND Nurse Practitioner Family
DX: S06.5X0A Traumatic subdural hemorrhage without loss of consciousness, initial encounter (principal); Z53.8 Procedure and treatment not carried out for other reasons

== ENCOUNTER → 2021-04-06 | Outpatient (CLI) | payer MEDICARE | LOC: M RAD 08:59 | PROVIDERS: ATTEND Nurse Practitioner Family | DX: I71.4 Abdominal aortic aneurysm, without rupture (principal) ==

== ENCOUNTER → 2021-06-23 | Outpatient (REF) | payer MEDICARE | LOC: M LAB REF 16:48 | PROVIDERS: ATTEND Physician Assistant | DX: J02.9 Acute pharyngitis, unspecified (principal); R50.9 Fever, unspecified ==

== ENCOUNTER → 2021-11-16 | Outpatient (CLI) | payer MEDICARE | LOC: M RAD 12:16 | PROVIDERS: ATTEND Nurse Practitioner Family | DX: R51.9 Headache, unspecified (principal) ==

== ENCOUNTER → 2021-11-28 | Outpatient (CLI) | payer MEDICARE ==
[2021-11-28 13:21] LABS: BASO # 0.1 10^3/uL (0.0-0.2); EOS # 0.1 10^3/uL (0.0-0.5); EOS % 1.4 % (0.0-3.0); HEMATOCRIT 47.3 % (42.0-52.0); HEMOGLOBIN 15.9 g/dl (13.5-17.5); LYMPH # 1.9 10^3/uL (1.5-5.0); LYMPH % 32.1 % (24.0-44.0); MEAN CORPUSCULAR HEMOGLOBIN 30.6 pg (27.0-33.0); MEAN CORPUSCULAR HGB CONC 33.6 g/dl (32.0-36.5); MONO # 0.6 10^3/uL (0.0-0.8); NEUTROPHILS # 3.2 10^3/uL (1.5-8.5); NEUTROPHILS % 54.8 % (36.0-66.0); PLATELET COUNT, AUTOMATED 243 10^3/uL (150-450); WHITE BLOOD COUNT 5.9 10^3/uL (4.0-10.0)
[2021-11-28 14:11] LABS: CALCIUM LEVEL 9.6 MG/DL (8.8-10.2); CREATININE FOR GFR 1.48 MG/DL (0.70-1.30); GLOMERULAR FILTRATION RATE 49.7 (>42); POTASSIUM SERUM 4.8 MEQ/L (3.5-5.1)
== END ==
LOC: M LAB 12:07
PROVIDERS: ATTEND Nurse Practitioner Adult Health
DX: I25.118 Atherosclerotic heart disease of native coronary artery with other forms of angina pectoris (principal)

== ENCOUNTER → 2022-07-19 | Outpatient (CLI) | payer MEDICARE ==
[~2022-07-19] MED LIST changes: +CLOP75TA99 PO; -FENO200C19 PO; +FENO200C24 PO; -PLAV1TAB2 PO
== END ==
LOC: M WHC 09:36
PROVIDERS: ATTEND Internal Medicine Interventional Cardiology
DX: I10 Essential (primary) hypertension (principal)

== ENCOUNTER 2023-10-20 11:49 | Emergency (ER) | payer MEDICARE ==
[~2023-10-20] VITALS: Ht 180.3 cm; Wt 89.3 kg
[~2023-10-20 11:49] MED LIST changes: -GLIM1TAB4 PO; +GLIM1TAB84 PO
[2023-10-20 12:21] LABS: BASO % 0.3 % (0.0-1.0); EOS % 0.1 % (0.0-3.0); HEMATOCRIT 44.8 % (42.0-52.0); HEMOGLOBIN 15.5 g/dl (13.5-17.5); LYMPH # 1.3 10^3/uL (1.5-5.0); LYMPH % 16.7 % (24.0-44.0); MEAN CORPUSCULAR HEMOGLOBIN 30.9 pg (27.0-33.0); MEAN CORPUSCULAR HGB CONC 34.6 g/dl (32.0-36.5); MEAN CORPUSCULAR VOLUME 89.4 fl (80.0-96.0); MONO # 0.5 10^3/uL (0.0-0.8); MONO % 6.3 % (2.0-8.0); NEUTROPHILS # 5.7 10^3/uL (1.5-8.5); NEUTROPHILS % 76.1 % (36.0-66.0); PLATELET COUNT, AUTOMATED 231 10^3/uL (150-450); RED BLOOD COUNT 5.01 10^6/uL (4.30-6.10); WHITE BLOOD COUNT 7.5 10^3/uL (4.0-10.0)
[2023-10-20 12:33] LABS: INR 1.05; PROTHROMBIN TIME 13.3 SECONDS (12.5-14.5)
[2023-10-20] MEDS: NS 500 ML IV SCH (12:50)
[2023-10-20 12:51] LABS: LIPASE 35 U/L (12-53)
[2023-10-20 12:52] LABS: AMYLASE 52 U/L (30-118)
[2023-10-20 12:53] LABS: ALBUMIN 3.6 G/DL (3.2-5.2); ALKALINE PHOSPHATASE 92 U/L (46-116); ALT/SGPT 39 U/L (7.0-40); AST/SGOT 27 U/L (<34); BILIRUBIN,DIRECT 0.2 MG/DL (<0.4); BILIRUBIN,TOTAL 0.6 MG/DL (0.3-1.2); BLOOD UREA NITROGEN 18 MG/DL (9-23); CALCIUM LEVEL 9.9 MG/DL (8.3-10.6); CARBON DIOXIDE LEVEL 27 MMOL/L (20-31); CHLORIDE LEVEL 107 MMOL/L (98-107); GLOMERULAR FILTRATION RATE > 60.0 (>42); GLUCOSE, FASTING 137 MG/DL (74-106); POTASSIUM SERUM 4.1 MMOL/L (3.5-5.1); SODIUM LEVEL 138 MMOL/L (136-145); TOTAL PROTEIN 6.7 G/DL (5.7-8.2)
[2023-10-20] MEDS ORDERED: ISOVUE-370 76% 100ML VIAL As Ordered ONE (13:26)
[2023-10-20] MEDS: ONDANSETRON 4MG 2ML VIAL IV ONE (13:28)
[2023-10-20 14:08] LABS: CK-MB VALUE MASS < 1.0 NG/ML (<3.6)
[2023-10-20 14:10] LABS: CPK CREATINE PHOSPHOKINASE 110 U/L (46-171)
[2023-10-20 14:34] LABS: CK-MB VALUE MASS < 1.0 NG/ML (<3.6)
[2023-10-20 14:42] LABS: CPK CREATINE PHOSPHOKINASE 94 U/L (46-171); MB/CK RELATIVE INDEX 1.06 (< OR =4)
[2023-10-20] MEDS ORDERED: ONDA-282 PO (15:08)
[2023-10-20 15:31] VITALS: BP 179/96; TEMP 98; O2SAT 99
== END 2023-10-20 15:45 | disposition home or self-care (01) ==
LOC: M ED 11:49
DX: R11.2 Nausea with vomiting, unspecified (principal); I11.0 Hypertensive heart disease with heart failure; I25.2 Old myocardial infarction; E78.5 Hyperlipidemia, unspecified; Z88.5 Allergy status to narcotic agent; Z87.891 Personal history of nicotine dependence; Z79.82 Long term (current) use of aspirin; Z79.899 Other long term (current) drug therapy
CPT/HCPCS: 70450; 74177; 80047; 80048; 80076; 81001; 82150; 82550; 82553; 83605; 83690; 84484; 85025; 85610; 85730; 87486; 87581; 87633; 87798; 93005; 93041; 96374; 99284; J2405; Q9967

== ENCOUNTER 2024-09-18 08:15 | Day surgery (SDC) | payer MEDICARE ==
[~2024-09-18] VITALS: Ht 180.3 cm; Wt 99.2 kg
[~2024-09-18 08:15] MED LIST changes: +AMLO2.5T3 PO; +CAND16TA17 PO; +ECOT81TA5 PO; +ERGO500029 PO; +ISOS1TAB35 PO; +LEVO125T4 PO; +ONDA-282 PO; +REPA140I2; +SPIR-10 PO
[2024-09-18 10:50] VITALS: BP 155/82; TEMP 97.3; O2SAT 96
== END 2024-09-18 10:50 | disposition home or self-care (01) ==
LOC: M OPP 08:15
PROVIDERS: ATTEND Surgery
DX: D12.3 Benign neoplasm of transverse colon (principal); K64.8 Other hemorrhoids; K57.30 Diverticulosis of large intestine without perforation or abscess without bleeding; I25.10 Atherosclerotic heart disease of native coronary artery without angina pectoris; I25.2 Old myocardial infarction; I10 Essential (primary) hypertension; E78.00 Pure hypercholesterolemia, unspecified; E11.9 Type 2 diabetes mellitus without complications; M19.90 Unspecified osteoarthritis, unspecified site; Z85.850 Personal history of malignant neoplasm of thyroid; Z92.3 Personal history of irradiation; Z87.891 Personal history of nicotine dependence; Z88.5 Allergy status to narcotic agent; Z91.048 Other nonmedicinal substance allergy status; Z79.02 Long term (current) use of antithrombotics/antiplatelets; Z79.82 Long term (current) use of aspirin; Z79.84 Long term (current) use of oral hypoglycemic drugs; Z79.890 Hormone replacement therapy; Z79.899 Other long term (current) drug therapy

== ENCOUNTER → 2024-11-05 | Outpatient (CLI) | payer MEDICARE ==
[~2024-11-05] MED LIST changes: +ISOVUE-300 61% 100 ML VIAL As Ordered ONE; +methylPREDNISolone 80 MG/ML SUSP 1 ML VIAL As Ordered ONE
== END ==
LOC: M RAD 15:26
PROVIDERS: ATTEND Orthopaedic Surgery
DX: M25.511 Pain in right shoulder (principal)
CPT/HCPCS: 20610; 77002; J0665; J1010; Q9967